=== PATIENT | male | born 1990 | race Caucasian/White ===

== ENCOUNTER 2017-04-21 13:43 | Emergency (ER) | payer BC ==
[2017-04-21] MEDS ORDERED: Thiamine IV 100 MG, Folic Acid IV* 1 MG, Multiple Vitamin IV ADULT* 10 ML in NS 0.9% 10... IV ONE (13:54)
[2017-04-21 14:49] LABS: ABS Basophils 0.1 10^3/ul (0-0.2); ABS Eosinophils 0 10^3/ul (0-0.6); ABS Lymphocytes 0.7 10^3/ul (1.0-4.8); ABS Monocytes 0.5 10^3/ul (0-0.8); ABS Neutrophils 7.6 10^3/ul (1.5-7.7); ABS Nucleated RBC 0 10^3/ul; Eosinophil % 0.1 % (0-6); Hematocrit 45 % (42-52); Hemoglobin 15.5 g/dl (14.0-18.0); Lymphocyte % 8.1 % (25-47); Mean Corpuscular HGB Conc 35 g/dl (31-36); Mean Corpuscular Hemoglobin 33 pg (27-31); Mean Corpuscular Volume 95 fL (80-94); Mean Platelet Volume 7 um3 (7.4-10.4); Nucleated Red Blood Cells % 0; Platelet Count 289 10^3/ul (150-450); Red Cell Distribution Width 13 % (10.5-15); White Blood Count 8.9 10^3/ul (3.5-10.8)
[2017-04-21 14:56] LABS: INR 0.89 (0.77-1.02)
--- NOTE | 2017-04-21 15:01 | RAD ---
Indication: Palpitations. Single frontal view of the chest performed at 1416 hours was reviewed. No prior study is available for comparison. No mediastinal shift is noted. Heart is of normal size and configuration. Lung joshi appear clear. IMPRESSION: NO ACTIVE CARDIOPULMONARY DISEASE IS NOTED.
[2017-04-21 15:04] LABS: EGFR Non-African American 134.3 (>60)
[2017-04-21] MEDS ORDERED: Magnesium Oxide TAB* 400 MG PO ONE (15:40)
[2017-04-21 15:46] LABS: Urine Appearance Clear; Urine Blood Negative (Negative); Urine Color Straw; Urine Ketones 1+ (Negative); Urine Protein Negative (Negative); Urine Specific Gravity 1.003 (1.010-1.030); Urine Urobilinogen Negative (Negative)
[2017-04-21] MEDS ORDERED: Acetaminophen TAB* 325 MG PO ONE (18:39)
[2017-04-21 19:35] VITALS: BP 146/96
--- NOTE | 2017-04-21 22:39 | ED ---
Joseph Edwards Tiffany, scribed for Selene Bustamante MD on 04/21/17 at 1406 . Palpitations / Dysrhythmia - HPI Summary HPI Summary: The patient is a 26 y/o M [facility] [place] of palpitations since 04 :30 today. Rates the pain 2/10 in severity. Symptoms aggravated and alleviated by nothing. Reports shakiness and waxing and waning chest pain. Also complains of left arm pain that was initially rated 4/10 but has resolved to left arm soreness rated 2/10. Denies headache. Consumed alcohol last night. Denies other substances. Woke up intoxicated at 01:30 today. Had nausea, vomited, shortness of breath, and chills. Fell back asleep and woke up at 04:30 with the feeling of my heart dropping and flipping around inside my chest. Took his pulse to be around 100. Used to having hangovers from drinking, but this mornings hangover was abnormal. Took 8 tabs of baby aspirin 81 mg [employer]. - History of Current Complaint Chief Complaint: EDDysrhythmPalp Time Seen by Provider: 04/21/17 13:54 Hx Obtained From: Patient Onset/Duration: Sudden Onset - Since 04:30 today, Lasting Hours - Since 04:30 today, Still Present Aggravating: Nothing Alleviating: Nothing Associated Signs & Symptoms: Negative - Headache, Chest Pain - Waxing and waning - Allergy/Home Medications Allergies/Adverse Reactions: Allergies Allergy/AdvReac Type Severity Reaction Status Date / Time [facility] Allergy Hives Verified 04/21/17 13:49 PMH/Surg Hx/FS Hx/Imm Hx Previously Healthy: No Endocrine/Hematology History: Denies: Hx Diabetes Sensory History: Denies: Hx Vision Problem, Hx Deafness Opthamlomology History: Denies: Hx Contacts or Glasses, Hx Legally Blind - Surgical History Surgery Procedure, Year, and Place: Broken femur. Head opened s/p falling on cinderblock. Non-cancerous lesion removed from face when he was young Infectious Disease History: No Infectious Disease History: Denies: Traveled Outside the [place] in Last 30 Days - Family History Known Family History: Positive: Cardiac Disease - Mother's mom Negative: Hypertension - Social History Alcohol Use: Occasionally Hx Substance Use: No Review of Systems Positive: Chills - Resolved, Other - Shakiness Positive: Palpitations, Chest Pain - Waxing and waning Positive: Shortness Of Breath - Resolved Positive: Vomiting - Resolved, Nausea - Resolved Positive: Other - resolved left arm pain Negative: Headache All Other Systems Reviewed And Are Negative: Yes Physical Exam - Summary Physical Exam Summary: Appearance: Ill-appearing, moderate pain distress, Well-nourished Skin: Warm, color reflects adequate perfusion Head: Normal Head/Face inspection Eyes: Conjunctiva clear ENT: Normal inspection Neck: Supple, no nodes, no JVD. Respiratory: tachycardic (122) Cardio: RRR, No murmur, pulses normal, brisk capillary refill Abdomen: soft, nontender Bowel sounds: present Musculoskeletal: Strength Intact/ ROM intact. No calf tenderness. No edema. Neuro: Alert, muscle tone normal, facial symmetry, speech normal, sensory/motor intact Psychological: Normal Triage Information Reviewed: Yes Vital Signs On Initial Exam: Initial Vitals Temp Pulse Resp BP Pulse Ox 99.1 F 135 20 162/95 99 04/21/17 13:45 04/21/17 13:45 04/21/17 13:45 04/21/17 13:45 04/21/17 13:45 Vital Signs Reviewed: Yes Diagnostics - Vital Signs Vital Signs Temp Pulse Resp BP Pulse Ox 04/21/17 13:45 99.1 F 135 20 162/95 99 - Laboratory Lab Results: Lab Results 04/21/17 04/21/17 04/21/17 Range/Units 14:37 14:37 14:37 WBC 8.9 (3.5-10.8) 10^3/ul RBC 4.70 (4.0-5.4) 10^6/ul Hgb 15.5 (14.0-18.0) g/dl Hct 45 (42-52) % MCV 95 H (80-94) fL MCH 33 H (27-31) pg MCHC 35 (31-36) g/dl RDW 13 (10.5-15) % Plt Count 289 (150-450) 10^3/ul MPV 7 L (7.4-10.4) um3 Neut % (Auto) 84.9 H (38-83) % Lymph % (Auto) 8.1 L (25-47) % [place] % (Auto) 6.1 (0-7) % Eos % (Auto) 0.1 (0-6) % Baso % (Auto) 0.8 (0-2) % Absolute Neuts (auto) 7.6 (1.5-7.7) 10^3/ul Absolute Lymphs (auto) 0.7 L (1.0-4.8) 10^3/ul Absolute Monos (auto) 0.5 (0-0.8) 10^3/ul Absolute Eos (auto) 0 (0-0.6) 10^3/ul Absolute Basos (auto) 0.1 (0-0.2) 10^3/ul Absolute Nucleated RBC 0 10^3/ul Nucleated RBC % 0 INR (Anticoag Therapy) (0.77-1.02) D-Dimer, Quantitative (Less Than 230) ng/mL Sodium 136 (133-145) mmol/L Potassium 3.5 (3.5-5.0) mmol/L Chloride 99 L (101-111) mmol/L Carbon Dioxide 26 (22-32) mmol/L Anion Gap 11 (2-11) mmol/L BUN 11 (6-24) mg/dL Creatinine 0.70 (0.67-1.17) mg/dL Est GFR ( Amer) 172.7 (>60) Est GFR (Non-Af Amer) 134.3 (>60) BUN/Creatinine Ratio 15.7 (8-20) Glucose 105 H (70-100) mg/dL Lactic Acid 1.5 (0.5-2.0) mmol/L Calcium 10.0 (8.6-10.3) mg/dL Magnesium 1.7 L (1.9-2.7) mg/dL Total Bilirubin 0.90 (0.2-1.0) mg/dL AST 22 (13-39) U/L ALT 17 (7-52) U/L Alkaline Phosphatase 38 (34-104) U/L Total Creatine Kinase 104 (10-223) U/L CK-MB (CK-2) 1.1 (0.6-6.3) ng/mL Troponin I 0.00 (<0.04) ng/mL B-Natriuretic Peptide ( - 100) pg/mL Total Protein 7.2 (6.4-8.9) g/dL Albumin 4.7 (3.2-5.2) g/dL Globulin 2.5 (2-4) g/dL Albumin/Globulin Ratio 1.9 (1-3) TSH 0.60 (0.34-5.60) mcIU/mL Urine Color Urine Appearance Urine pH (5-9) Ur Specific Coleman (1.010-1.030) Urine Protein (Negative) Urine Ketones (Negative) Urine Blood (Negative) Urine Nitrate (Negative) Urine Bilirubin (Negative) Urine Urobilinogen (Negative) Ur Leukocyte Esterase (Negative) Urine WBC (Auto) (Absent) Urine RBC (Auto) (Absent) Urine Bacteria (Absent) Urine Glucose (Negative) Urine Opiates Screen (None Detect) Ur Barbiturates Screen (None Detect) Ur Phencyclidine Scrn (None Detect) Ur Amphetamines Screen (None Detect) U Benzodiazepines Scrn (None Detect) Urine Cocaine Screen (None Detect) U Cannabinoids Screen (None Detect) Serum Alcohol < 10 (<10) mg/dL Influenza A (Rapid) (Negative) Influenza B (Rapid) (Negative) 04/21/17 04/21/17 04/21/17 Range/Units 14:37 14:37 15:19 WBC (3.5-10.8) 10^3/ul RBC (4.0-5.4) 10^6/ul Hgb (14.0-18.0) g/dl Hct (42-52) % MCV (80-94) fL MCH (27-31) pg MCHC (31-36) g/dl RDW (10.5-15) % Plt Count (150-450) 10^3/ul MPV (7.4-10.4) um3 Neut % (Auto) (38-83) % Lymph % (Auto) (25-47) % [place] % (Auto) (0-7) % Eos % (Auto) (0-6) % Baso % (Auto) (0-2) % Absolute Neuts (auto) (1.5-7.7) 10^3/ul Absolute Lymphs (auto) (1.0-4.8) 10^3/ul Absolute Monos (auto) (0-0.8) 10^3/ul Absolute Eos (auto) (0-0.6) 10^3/ul Absolute Basos (auto) (0-0.2) 10^3/ul Absolute Nucleated RBC 10^3/ul Nucleated RBC % INR (Anticoag Therapy) 0.89 (0.77-1.02) D-Dimer, Quantitative < 200 (Less Than 230) ng/mL Sodium (133-145) mmol/L Potassium (3.5-5.0) mmol/L Chloride (101-111) mmol/L Carbon Dioxide (22-32) mmol/L Anion Gap (2-11) mmol/L BUN (6-24) mg/dL Creatinine (0.67-1.17) mg/dL Est GFR ( Amer) (>60) Est GFR (Non-Af Amer) (>60) BUN/Creatinine Ratio (8-20) Glucose (70-100) mg/dL Lactic Acid (0.5-2.0) mmol/L Calcium (8.6-10.3) mg/dL Magnesium (1.9-2.7) mg/dL Total Bilirubin (0.2-1.0) mg/dL AST (13-39) U/L ALT (7-52) U/L Alkaline Phosphatase (34-104) U/L Total Creatine Kinase (10-223) U/L CK-MB (CK-2) (0.6-6.3) ng/mL Troponin I (<0.04) ng/mL B-Natriuretic Peptide 19 ( - 100) pg/mL Total Protein (6.4-8.9) g/dL Albumin (3.2-5.2) g/dL Globulin (2-4) g/dL Albumin/Globulin Ratio (1-3) TSH (0.34-5.60) mcIU/mL Urine Color Urine Appearance Urine pH (5-9) Ur Specific Coleman (1.010-1.030) Urine Protein (Negative) Urine Ketones (Negative) Urine Blood (Negative) Urine Nitrate (Negative) Urine Bilirubin (Negative) Urine Urobilinogen (Negative) Ur Leukocyte Esterase (Negative) Urine WBC (Auto) (Absent) Urine RBC (Auto) (Absent) Urine Bacteria (Absent) Urine Glucose (Negative) Urine Opiates Screen None detected (None Detect) Ur Barbiturates Screen None detected (None Detect) Ur Phencyclidine Scrn None detected (None Detect) Ur Amphetamines Screen None detected (None Detect) U Benzodiazepines Scrn None detected (None Detect) Urine Cocaine Screen None detected (None Detect) U Cannabinoids Screen None detected (None Detect) Serum Alcohol (<10) mg/dL Influenza A (Rapid) (Negative) Influenza B (Rapid) (Negative) 04/21/17 04/21/17 Range/Units 15:19 18:45 WBC (3.5-10.8) 10^3/ul RBC (4.0-5.4) 10^6/ul Hgb (14.0-18.0) g/dl Hct (42-52) % MCV (80-94) fL MCH (27-31) pg MCHC (31-36) g/dl RDW (10.5-15) % Plt Count (150-450) 10^3/ul MPV (7.4-10.4) um3 Neut % (Auto) (38-83) % Lymph % (Auto) (25-47) % [place] % (Auto) (0-7) % Eos % (Auto) (0-6) % Baso % (Auto) (0-2) % Absolute Neuts (auto) (1.5-7.7) 10^3/ul Absolute Lymphs (auto) (1.0-4.8) 10^3/ul Absolute Monos (auto) (0-0.8) 10^3/ul Absolute Eos (auto) (0-0.6) 10^3/ul Absolute Basos (auto) (0-0.2) 10^3/ul Absolute Nucleated RBC 10^3/ul Nucleated RBC % INR (Anticoag Therapy) (0.77-1.02) D-Dimer, Quantitative (Less Than 230) ng/mL Sodium (133-145) mmol/L Potassium (3.5-5.0) mmol/L Chloride (101-111) mmol/L Carbon Dioxide (22-32) mmol/L Anion Gap (2-11) mmol/L BUN (6-24) mg/dL Creatinine (0.67-1.17) mg/dL Est GFR ( Amer) (>60) Est GFR (Non-Af Amer) (>60) BUN/Creatinine Ratio (8-20) Glucose (70-100) mg/dL Lactic Acid (0.5-2.0) mmol/L Calcium (8.6-10.3) mg/dL Magnesium (1.9-2.7) mg/dL Total Bilirubin (0.2-1.0) mg/dL AST (13-39) U/L ALT (7-52) U/L Alkaline Phosphatase (34-104) U/L Total Creatine Kinase (10-223) U/L CK-MB (CK-2) (0.6-6.3) ng/mL Troponin I (<0.04) ng/mL B-Natriuretic Peptide ( - 100) pg/mL Total Protein (6.4-8.9) g/dL Albumin (3.2-5.2) g/dL Globulin (2-4) g/dL Albumin/Globulin Ratio (1-3) TSH (0.34-5.60) mcIU/mL Urine Color Straw Urine Appearance Clear Urine pH 7.0 (5-9) Ur Specific [place] 1.003 L (1.010-1.030) Urine Protein Negative (Negative) Urine Ketones 1+ H (Negative) Urine Blood Negative (Negative) Urine Nitrate Negative (Negative) Urine Bilirubin Negative (Negative) Urine Urobilinogen Negative (Negative) Ur Leukocyte Esterase Trace H (Negative) Urine WBC (Auto) Absent (Absent) Urine RBC (Auto) Absent (Absent) Urine Bacteria Absent (Absent) Urine Glucose Negative (Negative) Urine Opiates Screen (None Detect) Ur Barbiturates Screen (None Detect) Ur Phencyclidine Scrn (None Detect) Ur Amphetamines Screen (None Detect) U Benzodiazepines Scrn (None Detect) Urine Cocaine Screen (None Detect) U Cannabinoids Screen (None Detect) Serum Alcohol (<10) mg/dL Influenza A (Rapid) Negative (Negative) Influenza B (Rapid) Negative (Negative) Result Diagrams: 04/21/17 14:37 04/21/17 14:37 Lab Statement: Any lab studies that have been ordered have been reviewed, and results considered in the medical decision making process. - Radiology CXR Radiology Interpretation Completed By: Radiologist - NO ACTIVE CARDIOPULMONARY DISEASE IS NOTED. ED physician has reviewed this radiology report. - EKG 13:50 Cardiac Rate: Tachycardia - 122 BPM EKG Rhythm: Sinus Tachycardia ST Segment: Non-Specific Ectopy: None EKG Interpretation: nml AVIVCT, nml QTc, and nml axis EKG Comparison: Other - No prior to compare Re-Evaluation - Re-Evaluation First Eval Re-Evaluation Time: 16:52 Change: Improved Comment: Heart rate settles at 110. Has no chest pain. Feels better. Ready to be discharged. Second Eval Re-Evaluation Time: 18:34 Change: Worse Comment: Patient's temperature increased to 102 before leaving so will swab for flu and give two Tylenol. Course/Dx - Course Course Of Treatment: Allergies noted. High blood pressure noted. EKG shows tachycardia, no priors to compare. Nml CXR. Checked labs. Hydrated with banana bag. Replaced magnesium. Patient agreeable to discharge. Discharge - Discharge Plan Condition: Stable Disposition: HOME Patient Education Materials: Heart Palpitations (ED), Hypomagnesemia (ED) Referrals: MARLENI Redd [Primary Care Provider] - 2 Days Additional Instructions: Your lab studies, EKG and Chest xray did not show any serious abnormalities. Your heart rate was 122 and came down to 109 with IV hydration. We gave you IV fluids with electrolytes and vitamins and we gave you oral magnesium for a slightly low magnesium. Return to the ER if you have any new or worsening symptoms. The documentation as recorded by the Joseph flores Tiffany accurately reflects the service I personally performed and the decisions made by me, Selene Bustamante MD.
== END 2017-04-21 19:35 | disposition home or self-care (01) ==
LOC: ED 13:43
DX: R00.2 Palpitations (principal); R25.9 Unspecified abnormal involuntary movements; R07.9 Chest pain, unspecified; M79.602 Pain in left arm; Z88.3 Allergy status to other anti-infective agents
CPT/HCPCS: 36415; 71045; 80053; 80307; 80320; 81003; 81015; 82550; 82553; 83605; 83735; 83880; 84443; 84484; 85025; 85379; 85610; 87086; 87502; 93005; 96365; 96366; 99284; A9270-GY; G0480; J3411

== ENCOUNTER 2017-08-09 00:12 | Emergency (ER) | payer BC ==
--- NOTE | 2017-08-09 01:01 | ED ---
Head Injury - HPI Summary HPI Summary: Patient complains of fall down 3 or 4 concrete steps with subsequent facial abrasions. Patient does not answer all questions appropriately and there is an odor of EtOH. Denies any symptoms at all, including LOC, face pain, trauma to tongue teeth or lips, N/V, vision change, focal deficits, neck pain, back pain, chest wall pain, bilateral upper extremity pain, abdominal pain, hip pain, bilateral lower extremity pain. Denies medical history. Denies use of illegal substances. When asked when he fell, patient states 2 months ago. - History Of Current Complaint Chief Complaint: EDFacialInjury Stated Complaint: ETOH, FALL Time Seen by Provider: 08/09/17 00:17 Hx Obtained From: Patient Mechanism Of Injury: Fall From Height Of: Severity Currently: None Pain Intensity: 0 Pain Scale Used: 0-10 Numeric Location of Head Injury: Frontal - Allergies/Home Medications Allergies/Adverse Reactions: Allergies Allergy/AdvReac Type Severity Reaction Status Date / Time cefaclor [From Ceclor] Allergy Hives Verified 08/09/17 00:17 PMH/Surg Hx/FS Hx/Imm Hx Endocrine/Hematology History: Denies: Hx Diabetes GI History: Denies: Hx Cirrhosis, Hx Crohn's Disease, Hx Diverticulosis, Hx Gall Bladder Disease, Hx Gastroesophageal Reflux Disease, Hx Gastrointestinal Bleed, Hx Hiatal Hernia, Hx Irritable Bowel, Hx Jaundice, Hx Obstructive Bowel, Hx Ileostomy, Hx Pyloric Stenosis, Hx Ulcer, Hx Urosepsis, Other GI Disorders Sensory History: Denies: Hx Contacts or Glasses, Hx Legally Blind, Hx Vision Problem, Hx Deafness Opthamlomology History: Denies: Hx Contacts or Glasses, Hx Legally Blind, Hx Vision Problem Neurological History: Denies: Hx CVA, Hx Dementia, Hx Developmental Delay, Hx Headaches, Hx Migraine, Hx Nerve Disease, Hx Peripheral Neuropathy, Hx Seizures, Hx Spinal Cord Injury, Hx Transient Ischemic Attacks (TIA), Hx CVP, Other Neuro Impairments/Disorders - Surgical History Surgery Procedure, Year, and Place: Broken femur. Head opened s/p falling on cinderblock. Non-cancerous lesion removed from face when he was young Infectious Disease History: No Infectious Disease History: Denies: Traveled Outside the [place] in Last 30 Days - Family History Known Family History: Positive: Cardiac Disease - Mother's mom Negative: Hypertension - Social History Alcohol Use: Occasionally Alcohol Amount: daily 1-2 weekends"more" Hx Substance Use: No Substance Use Type: Reports: None Hx Tobacco Use: No Smoking Status (MU): Never Smoked Tobacco Review of Systems Constitutional: Negative Eyes: Negative ENT: Negative Cardiovascular: Negative Respiratory: Negative Gastrointestinal: Negative Genitourinary: Negative Musculoskeletal: Negative Skin: Negative Neurological: Negative Psychological: Normal All Other Systems Reviewed And Are Negative: Yes Physical Exam - Summary Physical Exam Summary: Multiple abrasions to forehead, and face. No lacerations. No evidence of trauma to eyes, teeth, tongue, lips, nose. Full range of motion of neck without any indication of pain. Palpation of face and head without any indication of pain. No evidence of hematoma deformity ecchymosis contusion laceration, abrasion to head. No tenderness with palpation of neck, back, chest wall, abdomen. Patient flexes and extends bilateral upper extremities and bilateral lower extremity is without any indication of pain. Small abrasion on right flank. Odor of alcohol. Patient does not answer all questions appropriately. Triage Information Reviewed: Yes Vital Signs On Initial Exam: Initial Vitals Temp Pulse Resp BP Pulse Ox 98 F 96 14 143/93 98 08/09/17 00:17 08/09/17 00:17 08/09/17 00:17 08/09/17 00:17 08/09/17 00:17 Vital Signs Reviewed: Yes Appearance: Positive: Well-Appearing Skin: Positive: Warm Head/Face: Positive: Normal Head/Face Inspection Eyes: Positive: Normal ENT: Positive: Normal ENT inspection Neck: Positive: Supple Respiratory/Lung Sounds: Positive: Clear to Auscultation Cardiovascular: Positive: Normal Abdomen Description: Positive: Nontender Musculoskeletal: Positive: Normal Neurological: Positive: Normal Psychiatric: Positive: Normal AVPU Assessment: Alert - Dexter Coma Scale Best Eye Response: 4 - Spontaneous Best Motor Response: 6 - Obeys Commands Best Verbal Response: 5 - Oriented Coma Scale Total: 15 Diagnostics - Vital Signs Vital Signs Temp Pulse Resp BP Pulse Ox 08/09/17 00:17 98 F 96 14 143/93 98 - Laboratory Lab Statement: Any lab studies that have been ordered have been reviewed, and results considered in the medical decision making process. - CT brain CT Interpretation: No Acute Changes CT Interpretation Completed By: Radiologist c spine CT Interpretation: No Acute Changes CT Interpretation Completed By: Radiologist maxillofacial CT Interpretation: Positive (See Comments) - Depressed fracture of the left zygoma with no infiltration of overlying tissues although there is infiltration overlying the right mandible. The fracture is potentially old. CT Interpretation Completed By: Radiologist Re-Evaluation - Re-Evaluation 1 Re-Evaluation Time: 02:31 Comment: Patient remains alert and oriented. Head Injury Course/Dx Course Of Treatment: Patient complains of fall down 3 or 4 concrete steps with subsequent facial abrasions. Patient does not answer all questions appropriately and there is an odor of EtOH. Denies any symptoms at all, including LOC, face pain, trauma to tongue teeth or lips, N/V, vision change, focal deficits, neck pain, back pain, chest wall pain, bilateral upper extremity pain, abdominal pain, hip pain, bilateral lower extremity pain. Denies medical history. Denies use of illegal substances. When asked when he fell, patient states 2 months ago. Multiple abrasions to forehead, and face. No lacerations. No evidence of trauma to eyes, teeth, tongue, lips, nose. Full range of motion of neck without any indication of pain. Palpation of face and head without any indication of pain. No evidence of hematoma deformity ecchymosis contusion laceration, abrasion to head. No tenderness with palpation of neck, back, chest wall, abdomen. Patient flexes and extends bilateral upper extremities and bilateral lower extremity is without any indication of pain. Small abrasion on right flank. Odor of alcohol. Patient does not answer all questions appropriately. Serum alcohol 372. - Diagnoses Provider Diagnoses: Alcohol intoxication, Fracture of left zygomatic arch Discharge - Sign-Out/Discharge Documenting (check all that apply): Sign-Out Patient Signing out patient TO: Jennifer Ramos - 02:30 - Discharge Plan Condition: Stable Disposition: HOME Prescriptions: Ibuprofen TAB* [Motrin TAB* 800 MG] 800 mg PO Q6H PRN #30 tab PRN Reason: Pain Patient Education Materials: Facial Fracture (ED), Alcohol Intoxication (ED) Referrals: MARLENI Redd [Medical Doctor] - 2 Days Teo Ross MD [Medical Doctor] - 1 Day (Follow up with Dr. Ross, ENT specialist, in 1 day.) Additional Instructions: Follow up with Dr. Ross, ENT specialist, in 1 day. Follow up with primary care physician in 1-2 days. Return to the emergency department with any new or worsening symptoms. - Billing Disposition and Condition Condition: STABLE Disposition: Home
[2017-08-09 02:56] VITALS: BP 145/95
--- NOTE | 2017-08-09 04:08 | ED ---
Mita Edwards Elizabeth, scribed for Jennifer Ramos MD on 08/09/17 at 0341 . Progress - Progress Note Progress Note: Patient is signed out to Dr. Ramos pending CT results. - Results/Orders Results/Orders: CT Brain Interpreted by radiologist Impression: No acute intracranial pathology Dr. Ramos has reviewed this report CT Maxillofacial Interpreted by radiologist Impression: fracture of the left zygomatic arch Dr. Ramos has reviewed this report CT Cervical Spine Interpreted by radiologist Impression: no cervical spine fracture Dr. Ramos has reviewed this report Re-Evaluation - Re-Evaluation 1 Re-Evaluation Time: 02:31 Comment: Patient remains alert and oriented. Course/Dx - Course Course Of Treatment: Patient complains of fall down 3 or 4 concrete steps with subsequent facial abrasions. Patient does not answer all questions appropriately and there is an odor of EtOH. Denies any symptoms at all, including LOC, face pain, trauma to tongue teeth or lips, N/V, vision change, focal deficits, neck pain, back pain, chest wall pain, bilateral upper extremity pain, abdominal pain, hip pain, bilateral lower extremity pain. Denies medical history. Denies use of illegal substances. When asked when he fell, patient states 2 months ago. Multiple abrasions to forehead, and face. No lacerations. No evidence of trauma to eyes, teeth, tongue, lips, nose. Full range of motion of neck without any indication of pain. Palpation of face and head without any indication of pain. No evidence of hematoma deformity ecchymosis contusion laceration, abrasion to head. No tenderness with palpation of neck, back, chest wall, abdomen. Patient flexes and extends bilateral upper extremities and bilateral lower extremity is without any indication of pain. Small abrasion on right flank. Odor of alcohol. Patient does not answer all questions appropriately. Serum alcohol 372. Dr. Ramos reviewed imaging results with patient. Patient will be discharged home with ENT and primary care physician follow-up. Patient is agreeable with this plan. - Diagnoses Provider Diagnoses: Alcohol intoxication, Fracture of left zygomatic arch Discharge - Sign-Out/Discharge Documenting (check all that apply): Discharge/Admit/Transfer - Discharge Plan Condition: Stable Disposition: HOME Discharge Disposition Comment: discharge home Prescriptions: Ibuprofen TAB* [Motrin TAB* 800 MG] 800 mg PO Q6H PRN #30 tab PRN Reason: Pain Patient Education Materials: Facial Fracture (ED), Alcohol Intoxication (ED) Referrals: Teo Ross MD [Medical Doctor] - 1 Day (Follow up with Dr. Ross, ENT specialist, in 1 day.) MARLENI Redd [Medical Doctor] - 2 Days Additional Instructions: Follow up with Dr. Ross, ENT specialist, in 1 day. Follow up with primary care physician in 1-2 days. Return to the emergency department with any new or worsening symptoms. The documentation as recorded by the Mita flores Elizabeth accurately reflects the service I personally performed and the decisions made by , Jennifer Ramos MD.
--- NOTE | 2017-08-09 07:52 | RAD ---
indication: Face versus concrete after falling down stairs. + EtOH. COMPARISON: None A CT scan of the brain, maxillofacial bones and c-spine was performed without intravenous contrast enhancement. Contiguous axial sections were obtained from the lung apices through the vertex of the skull. BRAIN: The ventricles, cisterns and sulci are within normal limits. No significant focal abnormality or mass effect is seen. The sol-white differentiation is adequately maintained. There is no evidence for intracranial hemorrhage. The calvarium is intact without radiographically apparent fracture. The mastoid air cells are appropriately aerated. FACIAL BONES: There is infiltration of the subcutaneous tissue overlying the right mandible. There is a left zygomatic fracture without infiltration of the subcutaneous tissue overlying the left zygoma. Bones: There is a depressed fracture at the left zygoma (axial image 45 and coronal image 33). The remaining visualized facial bones are intact. Orbits: The globes are round. The optic nerves are symmetric. The extraocular musculature is normal. There is no post septal or intraconal inflammatory change. There is no retrobulbar hematoma. Paranasal Sinuses: There is mild mucosal thickening bilaterally in the dependent maxillary sinuses. The remaining paranasal sinuses are clear. C-SPINE: On the sagittal view images there is straightening of the normal cervical lordosis. The vertebral bodies and facet joints are otherwise appropriately aligned. There is no acute fracture or dislocation. There is no prevertebral soft tissue swelling. There is no hyperdense material in the cervical canal to indicate hemorrhage. The visualized musculature and soft tissues are normal. There is no gross lymphadenopathy visualized. The visualized portion of the lung apices are clear. IMPRESSION: 1. No calvarial fracture or acute intracranial hemorrhage. 2. There is a depressed fracture of the left zygoma. There is no infiltration of the overlying soft tissues though there is infiltration overlying the right mandible. The fracture is potentially old. Please correlate to focality of the patient's pain on physical examination. 3. Nonspecific straightening of the normal cervical lordosis in an otherwise normal-appearing cervical spine.
== END 2017-08-09 03:53 | disposition home or self-care (01) ==
LOC: ED 00:12
DX: S02.40FA Zygomatic fracture, left side, initial encounter for closed fracture (principal); W10.9XXA Fall (on) (from) unspecified stairs and steps, initial encounter; Y92.9 Unspecified place or not applicable; F10.129 Alcohol abuse with intoxication, unspecified; Y90.8 Blood alcohol level of 240 mg/100 ml or more; Z88.3 Allergy status to other anti-infective agents
CPT/HCPCS: 36415; 70450; 70486; 72125; 80320; 99284; G0480